=== PATIENT | female | born 1985 | race Caucasian/White ===

== ENCOUNTER 2016-12-26 19:22 | Emergency (ER) | payer BC, MEDICARE ==
--- NOTE | 2016-12-26 20:36 | Emergency Department Record ---
History of Present Illness - General Chief complaint: Pain Stated complaint: RT SHOULDER PAIN Time Seen by Provider: 12/26/16 20:29 Source: Patient Mode of Arrival: Ambulatory Limitations: No limitations - History of Present Illness Initial comments: The patient is here due to R shoulder pain. It started this am after waking and the patient felt that she may have slept wrong on it. The pain increases with ROM and there is intermittent radiation of the pain down the R arm. She denies any arm weakness or numbness or any other symptoms. There is no hx of similar issues and no trauma. MD Complaint: Extremity pain, Joint pain Onset/Timin -: Hour(s) Location: Right Severity scale (1-10): 2 Quality: Aching Consistency: Intermittent Improves with: Immobilization Worsens with: Exertion Associated Symptoms: Denies other symptoms - Related Data Previous Rx's Medication Instructions Recorded Ibuprofen [Motrin 400Mg] 400 mg PO Q8H PRN #20 tablet 12/26/16 Allergies Allergy/AdvReac Type Severity Reaction Status Date / Time Latex, Natural Rubber Allergy RASH Verified 12/16/14 13:18 oxybutynin chloride Allergy ANAPHYLAXIS Verified 12/26/16 20:05 [From Ditropan] pseudoephedrine AdvReac HIVES Verified 12/16/14 13:18 Travel Screening - Travel/Exposure Within Last 30 Days Have you traveled within the last 30 days?: Yes Location Detail:: [place] - Travel Symptoms Symptom Screening: Headache Review of Systems Constitutional: Denies: Chills, Fever Eyes: Denies: Eye discharge ENT: Denies: Congestion Respiratory: Denies: Cough, Dyspnea Past Medical History - SOCIAL HISTORY Smoking Status: Light tobacco smoker (<10/day) Alcohol Use: None Drug Use: None - RESPIRATORY Hx Respiratory Disorders: No - CARDIOVASCULAR Hx Cardio Disorders: No - NEURO Hx Neuro Disorders: No - GI Hx GI Disorders: No - Hx Genitourinary Disorders: Yes Hx Bladder Problem: Yes Hx UTI: Yes - ENDOCRINE Hx Endocrine Disorders: No - MUSCULOSKELETAL Hx Musculoskeletal Disorders: Yes Hx Back Injury: Yes Comment:: spina bifida myelomeningocele Stage 4 - PSYCH Hx Psych Problems: No - HEMATOLOGY/ONCOLOGY Hx Hematology/Oncology Disorders: No Family Medical History Any Significant Family History?: Yes Hx Cancer: Brother/Sister, Grandparents *Cancer Comment: Breast, Uterine Physical Exam - General General Appearance: Alert, Oriented x3, Cooperative, No acute distress - Head Head exam: Atraumatic, Normocephalic, Normal inspection - Eye Eye exam: Normal appearance, PERRL - Neck Neck exam: Normal inspection, Full ROM. negative: Tenderness - Respiratory Respiratory exam: Normal lung sounds bilaterally. negative: Respiratory distress - Cardiovascular Cardiovascular Exam: Regular rate, Normal rhythm, Normal heart sounds - Extremities Extremities exam: Normal inspection (There is no swelling, bruising, or erythema noted.), Normal capillary refill, Tenderness (There is diffuse shoulder tenderness to palpation.), Other (The R arm and hand are NVI with normal pulses.). negative: Full ROM (There is decreased full ROM due to pain. ) , Joint swelling - Neurological Neurological exam: Alert, Reflexes normal (The reflexes in the upper extremities are 2+ and equal bilaterally.). negative: Motor sensory deficit Course Vital Signs 12/26/16 20:06 Temperature 98.2 F Pulse Rate [ 60 Pulse Ox Probe] Respiratory 18 Rate Blood Pressure 111/64 [Left Arm] Pulse Ox 98 - Reevaluation(s) Reevaluation #1: I did explain to the patient that her xray is normal. I really cannot explain to the patient why she is having the pain. She is to ice and rest the area and see her PCP early next week for recheck. 12/26/16 21:06 Medical Decision Making - Data Complexity MDM Data: X-Ray Ordered and/or Reviewed - Radiology Data Radiology results: Report reviewed (R shoulder: Normal per rad.) Disposition Disposition: Discharge Clinical Impression: Right shoulder pain Qualifiers: Chronicity: acute Qualified Code(s): M25.511 - Pain in right shoulder Disposition: Home, Self-Care Condition: (1) Good Instructions: Arthralgia (ED) Additional Instructions: Please use the sling for 7 days and take the Motrin for pain. Please use ice on the R shoulder during the day. Please see your PCP early next week for recheck. Return to the ER if worse. Prescriptions: Ibuprofen [Motrin 400Mg] 400 mg PO Q8H PRN #20 tablet PRN Reason: Analgesia Forms: Patient Portal Access Time of Disposition: 21:09
[2016-12-26] MEDS: IBUPROFEN 400 MG TABLET PO ONE (20:38)
== END 2016-12-26 21:17 | disposition home or self-care (01) ==
LOC: ER 19:22
DX: M25.511 Pain in right shoulder (principal)
CPT/HCPCS: 99283

== ENCOUNTER 2017-12-13 18:45 | Emergency (ER) | payer MEDICARE ==
[2017-12-13 19:24] LABS: URINE APPEARANCE CLEAR; URINE BILIRUBIN NEGATIVE (NEGATIVE); URINE BLOOD TRACE-I (NEGATIVE); URINE COLOR YELLOW; URINE GLUCOSE (UA) NEGATIVE (NEGATIVE); URINE KETONE NEGATIVE (NEGATIVE); URINE LEUKOCYTE ESTERASE LARGE (NEGATIVE); URINE NITRITE POSITIVE (NEGATIVE); URINE PROTEIN NEGATIVE (NEGATIVE)
[2017-12-13 19:35] LABS: URINE BACTERIA 3+
--- NOTE | 2017-12-13 19:53 | Emergency Department Record ---
History of Present Illness - General Chief Complaint: Back Pain/Injury Stated Complaint: LOWER BACK PAIN/LT SIDE Time Seen by Provider: 12/13/17 18:53 Source: Patient Mode of Arrival: Ambulatory Limitations: No limitations - History of Present Illness Initial Comments: pt is having l flank pain that wraps around abd. she states this happens when she has a uti. 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 she has no n/v/c/d. no chills/fevers sweats. MD Complaint: Other Onset/Timin -: Days(s) Similar Symptoms Previously: Yes Radiation: None Severity: Moderate Severity scale (1-10): 9 Quality: Aching, Dull Consistency: Constant Improves With: None Worsens With: Deep breaths/cough Associated Symptoms: Denies other symptoms - Related Data Previous Rx's Medication Instructions Recorded Ibuprofen [Motrin 400Mg] 400 mg PO Q8H PRN #20 tablet 12/26/16 Ciprofloxacin HCl [Cipro] 500 mg PO Q12HR #14 tablet 12/13/17 Allergies Allergy/AdvReac Type Severity Reaction Status Date / Time Latex, Natural Rubber Allergy RASH Verified 12/16/14 13:18 oxybutynin chloride Allergy ANAPHYLAXIS Verified 12/26/16 20:05 [From Ditropan] pseudoephedrine AdvReac HIVES Verified 12/16/14 13:18 Travel Screening - Travel/Exposure Within Last 30 Days Have you traveled within the last 30 days?: No - Travel Symptoms Symptom Screening: None Review of Systems Reviewed: No additional complaints except as noted below Constitutional: Reports: As per HPI. Denies: Chills, Fever, Malaise, Night sweats, Weakness, Weight change Eyes: Reports: As per HPI. Denies: Eye discharge, Eye pain, Photophobia, Vision change ENT: Reports: As per HPI. Denies: Congestion, Dental pain, Ear pain, Epistaxis , Hearing loss, Throat pain Respiratory: Reports: As per HPI. Denies: Cough, Dyspnea, Hemoptysis, Stridor, Wheezes Cardiovascular: Reports: As per HPI. Denies: Arrhythmia, Chest pain, Dyspnea on exertion, Edema, Murmurs, Orthopnea, Palpitations, Paroxysmal nocturnal dyspnea, Rheumatic Fever, Syncope Endocrine: Reports: As per HPI. Denies: Fatigue, Heat or cold intolerance, Polydipsia, Polyuria Gastrointestinal: Reports: As per HPI. Denies: Abdominal pain, Constipation, Diarrhea, Hematemesis, Hematochezia, Melena, Nausea, Vomiting Genitourinary: Reports: As per HPI. Denies: Abnormal menses, Discharge, Dyspareunia, Dysuria, Frequency, Hematuria, Incontinence, Retention, Urgency Musculoskeletal: Reports: As per HPI, Back pain. Denies: Arthralgia, Gout, Joint swelling, Myalgia, Neck pain Skin: Reports: As per HPI. Denies: Bruising, Change in color, Change in hair/ nails, Lesions, Pruritus, Rash Neurological: Reports: As per HPI. Denies: Abnormal gait, Confusion, Headache, Numbness, Paresthesias, Seizure, Tingling, Tremors, Vertigo, Weakness Psychiatric: Reports: As per HPI. Denies: Anxiety, Auditory hallucinations, Depression, Homicidal thoughts, Suicidal thoughts, Visual hallucinations Hematological/Lymphatic: Reports: As per HPI. 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 mucus in urine is baseline. - ENDOCRINE Hx Endocrine Disorders: No - MUSCULOSKELETAL Hx Musculoskeletal Disorders: Yes Hx Back Injury: Yes Comment:: spina bifida myelomeningocele Stage 4 - PSYCH Hx Psych Problems: No - HEMATOLOGY/ONCOLOGY Hx Hematology/Oncology Disorders: Yes Hx Anemia: Yes (pernicious anemia) Family Medical History Any Significant Family History?: Yes Hx Cancer: Brother/Sister, Grandparents *Cancer Comment: Breast, Uterine Physical Exam - General General Appearance: Alert, Oriented x3, Cooperative, Mild distress - Head Head exam: Normal inspection - Eye Eye exam: Normal appearance, PERRL, EOMI Pupils: Normal accommodation - ENT ENT exam: Normal exam, Mucous membranes moist, Normal external ear exam, Normal orophraynx, TM's normal bilaterally Ear exam: Normal external inspection. negative: External canal tenderness Nasal Exam: Normal inspection. negative: Discharge, Sinus tenderness Mouth exam: Normal external inspection, Tongue normal Teeth exam: Normal inspection. negative: Dental caries Throat exam: Normal inspection. negative: Tonsillar erythema, Tonsillar exudate - Neck Neck exam: Normal inspection, Full ROM. negative: Tenderness - Respiratory Respiratory exam: Normal lung sounds bilaterally. negative: Respiratory distress - Cardiovascular Cardiovascular Exam: Regular rate, Normal rhythm, Normal heart sounds - GI/Abdominal GI/Abdominal exam: Soft, Normal bowel sounds. negative: Tenderness - Rectal Rectal exam: Deferred, Tenderness - exam: Deferred - Extremities Extremities exam: Normal inspection, Full ROM, Normal capillary refill. negative: Tenderness - Back Back exam: Reports: Normal inspection, Full ROM, Tenderness. Denies: Muscle spasm, Rash noted - Neurological Neurological exam: Alert, CN II-XII intact, Normal gait, Oriented X3 - Psychiatric Psychiatric exam: Normal affect, Normal mood - Skin Skin exam: Dry, Intact, Normal color, Warm Course Vital Signs 12/13/17 19:25 Temperature 98.8 F Pulse Rate [ 97 H Pulse Ox Probe] Respiratory 20 Rate Blood Pressure 139/79 [Left Arm] Pulse Ox 100 Medical Decision Making - Lab Data Result diagrams: 12/13/17 19:55 12/13/17 19:55 Lab Results 12/13/17 Range/Units 19:20 Urine Color Yellow Urine Appearance Clear Urine pH 7.0 (5.0-8.0) Ur Specific [place] 1.015 (1.002-1.030) Urine Protein Negative (NEGATIVE) Urine Glucose (UA) Negative (NEGATIVE) Urine Ketones Negative (NEGATIVE) Urine Blood Trace-i (NEGATIVE) Urine Nitrite Positive H (NEGATIVE) Urine Bilirubin Negative (NEGATIVE) Urine Urobilinogen 1.0 (0.20 - 1.00) E.U./dL Ur Leukocyte Esterase Large H (NEGATIVE) Urine RBC 3 - 6 (NONE SEEN) Urine WBC Too numerous to cnt (0-2/hpf) Ur Epithelial Cells 3 - 6 (FEW) Urine Bacteria 3+ Disposition Disposition: Discharge Clinical Impression: Pyelonephritis Disposition: Home, Self-Care Condition: (1) Good Instructions: Catheter-associated Urinary Tract Infection (ED) Additional Instructions: follow up with family doctor. return sooner if worse. push fluids Prescriptions: Ciprofloxacin HCl [Cipro] 500 mg PO Q12HR #14 tablet Quality - Quality Measures Quality Measures: N/A - Blood Pressure Screening Does Patient Have Any of the Following: No Blood Pressure Classification: Pre-Hypertensive BP Reading Systolic Measurement: 128 Diastolic Measurement: 79 Screening for High Blood Pressure: < Pre-Hypertensive BP, F/U Documented > [ [id number]] Pre-Hypertensive Follow-up Interventions: Follow-up with rescreen every year.
[2017-12-13 20:07] LABS: HEMATOCRIT 39.9 % (35.0-47.0); HEMOGLOBIN 12.7 gm/dl (11.6-16.0); MEAN CELL VOLUME 102.3 fl (81-97); MEAN CORPUSCULAR HEMOGLOBIN 32.6 pg (27-33); MEAN CORPUSCULAR HGB CONC 31.8 g/dl (32-36); MEAN PLATELET VOLUME 11.2 fl (7.4-10.4); PLATELET COUNT 260 K/uL (130-400); RED CELL DISTRIBUTION WIDTH 12.7 % (11.5-14.5); WHITE BLOOD COUNT W/O DIFF 14.2 K/uL (4.2-12.2)
[2017-12-13 20:12] LABS: BLOOD UREA NITROGEN 10 mg/dL (6-20); CREATININE 0.3 mg/dL (0.5-0.9); EST GLOMERULAR FILTRATION RATE > 60 mL/min
[2017-12-13 20:15] LABS: GLUCOSE,RANDOM 99 mg/dL (74-109)
[2017-12-13] MEDS ORDERED: PROMETHAZINE HCL 25 MG/ML VIAL IM ONE (20:23)
[2017-12-13] MEDS ORDERED: KETOROLAC 30 MG/ML VIAL IM ONE (20:23)
[2017-12-13 20:25] LABS: ANISOCYTOSIS 1+; PLATELET ESTIMATE NORMAL (NORMAL)
[2017-12-13] MEDS ORDERED: CIPROFLOXACIN HCL 500 MG TABLET PO ONE (20:59)
--- NOTE | 2017-12-15 12:31 | CT SCAN REPORT ---
DATE: 12/13/2017. EXAM: CT SCAN OF THE ABDOMEN AND PELVIS. HISTORY: The patient has left-sided flank pain. TECHNIQUE: Serial axial CT scan of the abdomen and pelvis was performed at 2.5 mm intervals from the dome of the diaphragm down to the pubic symphysis without the use of intravenous or oral contrast. COMPARISON: No comparison CT scans are available. FINDINGS: The lung windows of the lung bases demonstrate no CT evidence of a focal infiltrate or pleural effusion. The visualized heart size and contour is within normal limits. The liver, spleen, bilateral adrenal glands, pancreas, and gallbladder are unremarkable. There is mild left-sided hydronephrosis and hydroureter. No obvious obstructive renal calculus is noted. There is an irregular appearance of the mid anterior left renal cortex with a questionable 3.9 cm x 3.4 cm isodense lesion. This finding may represent pyelonephritis and/or renal mass. Questionable perinephric fat stranding surrounding this lesion is noted. In addition, there are findings suggestive of mild ureteral wall thickening extending into the left renal calices. Questionable periureteral fat stranding is noted suggesting inflammatory changes. The right kidney demonstrates no CT evidence of hydronephrosis or hydroureter. No renal or ureteral calculi are noted on the right side. The contour and caliber of the noncontrasted abdominal aorta is within normal limits. There is no CT evidence of retroperitoneal, pelvic, or inguinal lymphadenopathy. The bowel gas pattern is nonspecific and nonobstructive. The appendix is clearly visualized, and there is no CT evidence of appendicitis. No free intraperitoneal fluid or free intraperitoneal air is noted. The urinary bladder demonstrates irregular contour and distension. Questionable mild wall thickening is noted inferiorly within the urinary bladder. These findings may represent cystitis. Clinical correlation is recommended. The uterus is unremarkable. Within the left ovary, there is a 2.5 cm cyst suspected. Bone windows demonstrate no CT evidence of a fracture or dislocation of the visualized osseous structures. 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 IMPRESSION: 1. SPINAL DYSRAPHISM IS NOTED DISCUSSED ABOVE. 2. THE URINARY BLADDER IS SHAPED IRREGULARLY SUGGESTING POSSIBLE LOSS OF NEUROMOTOR CONTROL OF THE URINARY BLADDER. THERE IS MILD THICKENING OF THE URINARY BLADDER WALL WHICH MAY INDICATE CYSTITIS. 3. THERE IS A PERIURETERAL FAT STRANDING WITH URETERAL WALL THICKENING AND LEFT -SIDED MILD HYDRONEPHROSIS AND HYDROURETER. THESE FINDINGS MAY INDICATE INFECTIOUS CHANGES. 4. THERE IS IRREGULAR CONTOUR OF THE ANTERIOR MID POLE OF THE LEFT KIDNEY WITH QUESTIONABLE PERINEPHRIC FAT STRANDING. THESE FINDINGS MAY INDICATE PYELONEPHRITIS. SUBTLE MASS CANNOT BE EXCLUDED. 5. ALSO NOTED IN THE UPPER ABDOMEN IS A CATHETER WHICH MAY REPRESENT A VENTRICULAR PERITONEAL SHUNT. JOB NUMBER: [id number] MTDD
== END 2017-12-13 21:30 | disposition home or self-care (01) ==
LOC: ER 18:45
DX: N10 Acute pyelonephritis (principal); R05 Cough; F17.210 Nicotine dependence, cigarettes, uncomplicated
CPT/HCPCS: 99283; 96372; 99284; 80048; 81001; 81025; 85027; 74176; J1885